=== PATIENT | male | born 1960 | race Caucasian/White ===

== ENCOUNTER 2025-01-31 02:09 | Emergency (ER) | payer OTHER ==
[~2025-01-31] VITALS: Ht 170.2 cm; Wt 88.2 kg
[2025-01-31 02:21] VITALS: BP 0/0; PULSE 0; RESP 0; O2SAT 80
== END 2025-01-31 06:26 ==
LOC: EMS 02:15
DX: I46.9 Cardiac arrest, cause unspecified (principal)
CPT/HCPCS: 31500; 92950; 99291; Z7502